=== PATIENT | male | born 1995 ===

== ENCOUNTER 2019-01-25 13:18 | Emergency (ER) | payer OTHER ==
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
[2019-01-25 13:28] VITALS: BP 137/91
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
[2019-01-25] MEDS ORDERED: IBUPROFEN 800 MG TAB PO ONE (15:16)
== END 2019-01-25 16:00 | disposition home or self-care (01) ==
LOC: ED 13:18
DX: M54.2 Cervicalgia (principal); M54.9 Dorsalgia, unspecified; M79.661 Pain in right lower leg; V49.59XA Passenger injured in collision with other motor vehicles in traffic accident, initial encounter; Y93.89 Activity, other specified; Y92.410 Unspecified street and highway as the place of occurrence of the external cause; Y99.8 Other external cause status
CPT/HCPCS: 72040; 72070

== ENCOUNTER 2020-08-11 13:16 | Emergency (ER) | payer SELFPAY ==
[2020-08-11 13:36] VITALS: BP 129/89
--- NOTE | 2020-08-11 13:43 | Emergency Department Report ---
ED General Adult HPI - General Chief complaint: Upper Respiratory Infection Stated complaint: ALLERGIES/SINUS/HEADACHE Time Seen by Provider: 08/11/20 13:35 Source: patient Mode of arrival: Ambulatory Limitations: Language Barrier - History of Present Illness Initial comments: 24-year-old immunocompetent male patient presents to the emergency department with complaints of subjective fever, sinus pressure, sneezing, nonproductive cough, nasal congestion, and sore throat starting 3 days ago. He has been taking Benadryl and ibuprofen with limited relief. No known sick contacts. No current steroid or antibiotic use. No recent travel. Denies neck pain, abdominal pain, shortness of breath, palpitations, vomiting, diarrhea, syncope, rash, urinary symptoms. Denies all other complaints at this time. - Related Data Previous Rx's Medication Instructions Recorded Last Taken Type Cyclobenzaprine [Flexeril] 10 mg PO TID PRN #10 tablet 01/25/19 Unknown Rx Ibuprofen [Motrin] 800 mg PO Q8HR PRN #30 tablet 01/25/19 Unknown Rx predniSONE [Deltasone] 20 mg PO DAILY #5 tablet 01/25/19 Unknown Rx Brompheniramine/Pseudoephed/Dm 118 ml PO Q4H PRN #1 bottle 08/11/20 Unknown Rx [Bromfed Dm Cough Syrup] Allergies Allergy/AdvReac Type Severity Reaction Status Date / Time No Known Allergies Allergy Verified 08/11/20 13:31 ED Review of Systems ROS: Stated complaint: ALLERGIES/SINUS/HEADACHE Other details as noted in HPI Other: GENERAL: Positive for subjective fever. ENT: Positive for sinus pressure, sneezing, nasal congestion, sore throat. CARDIOVASCULAR: Negative for chest pain, palpitations, lower extremity swelling. PULMONARY: Positive for nonproductive cough. GASTROINTESTINAL: Negative for abdominal pain, nausea, vomiting, diarrhea, constipation. MUSCULOSKELETAL: Negative for joint pain, joint swelling, myalgias, back pain, neck pain. NEUROLOGICAL: Negative for headache, seizure, syncope, paresthesias, weakness. INTEGUMENTARY: Negative for erythema, rash, diaphoresis, laceration, ecchymosis. HEMATOLOGICAL: Negative for hemoptysis, hematemesis, hematochezia, hematuria. PSYCHIATRIC: Negative for hallucinations, suicidal ideation, homicidal ideation, anxiety, depression. ED Past Medical Hx - Past Medical History Previous Medical History?: No - Surgical History Past Surgical History?: No - Social History Smoking Status: Current Every Day Smoker Substance Use Type: Alcohol - Medications Home Medications: Home Medications Medication Instructions Recorded Confirmed Last Taken Type Cyclobenzaprine [Flexeril] 10 mg PO TID PRN #10 tablet 01/25/19 Unknown Rx Ibuprofen [Motrin] 800 mg PO Q8HR PRN #30 tablet 01/25/19 Unknown Rx predniSONE [Deltasone] 20 mg PO DAILY #5 tablet 01/25/19 Unknown Rx Brompheniramine/Pseudoephed/Dm 118 ml PO Q4H PRN #1 bottle 08/11/20 Unknown Rx [Bromfed Dm Cough Syrup] ED Physical Exam - General Limitations: Language Barrier - Other Other exam information: General: Awake and alert. No acute distress. Head: Atraumatic, normocephalic. Bilateral frontal and maxillary sinus tenderness. Eyes: EOMI. Pupils are equal and round. Normal sclera and conjunctiva. ENT: Nasal congestion noted. Oral mucosa is moist. Normal pharyngeal exam. Neck: Supple. No lymphadenopathy. Pulmonary: No respiratory distress. Clear to auscultation bilaterally. Cardiac: Regular rate and rhythm. Pulses are palpable and equal bilaterally. No lower extremity cyanosis or edema. Skin: Warm and dry. No rashes. Abdomen: Soft, non-tender, non-protuberant. No guarding, rigidity, or rebound. Bowel sounds are normal. No organomegaly or masses noted. Back: Normal alignment. No CVA tenderness. Extremities: Symmetrical. Full range of motion intact. Neurological: Alert and oriented, appropriately interactive, no focal deficits. Psych: Cooperative. Appropriate mood and affect. Speech is evenly metered. Thoughts are logically construed. ED Course Vital Signs 08/11/20 08/11/20 13:34 13:36 Temperature 99.6 F Pulse Rate 85 Respiratory 20 Rate Blood Pressure 129/89 O2 Sat by Pulse 98 Oximetry ED Medical Decision Making - Medical Decision Making Differential diagnosis including but not limited to: pneumonia, sinusitis, viral upper respiratory infection, allergic rhinitis History and exam findings are most suggestive of common cold. No clinical indication for antibiotics at this time. He is afebrile, vital signs are stable, no respiratory distress. Lungs are clear to auscultation. Patient will be discharged home with appropriate symptomatic treatment and referred to local primary care provider for close outpatient follow-up. Patient expressed understanding is agreeable to plan of care. Disease transmission precautions discussed. Strict return precautions were added. Repeat exam is unremarkable and benign. History, exam, diagnostic testing, and current condition do not suggest worrisome pathology to warrant further testing, continued ED treatment, admission, or surgical evaluation at this point. Given the low probability of a significant medical illness, it would be more likely to result in harm than benefit to perform further testing at this stage. Discussed findings, presumptive diagnosis, need for follow-up and specific signs/symptoms that should prompt immediate return to the emergency department. Instructions were explained in detail to the patient in addition to giving written discharge information. Patient expressed understanding and was given the opportunity to ask questions, all of which were satisfactorily answered prior to discharge home. Critical care attestation.: If time is entered above; I have spent that time in minutes in the direct care of this critically ill patient, excluding procedure time. ED Disposition Clinical Impression: Acute nasopharyngitis Disposition: DC- TO HOME OR SELFCARE Is pt being admited?: No Does the pt Need Aspirin: No Condition: Stable Instructions: Viral Respiratory Infection, [id number] Additional Instructions: Take Tylenol or 4 hours Motrin every 8 hours as needed for pain. Take Bromfed as directed. Honey is an excellent natural cough suppressant. Rest. Drink plenty fluids. Wash hands frequently to prevent disease transmission. Do not share food or drinks with others. Follow-up with primary care provider this week. Call tomorrow to schedule an appointment. Return to the emergency department immediately for new or worsening symptoms. Prescriptions: Brompheniramine/Pseudoephed/Dm [Bromfed Dm Cough Syrup] 118 ml PO Q4H PRN #1 bottle PRN Reason: Cough Referrals: DAGO ERICKSON MD [Staff Physician] - 3-5 Days Time of Disposition: 13:43
== END 2020-08-11 14:02 | disposition home or self-care (01) ==
LOC: ED 13:16
DX: J00 Acute nasopharyngitis [common cold] (principal); F17.200 Nicotine dependence, unspecified, uncomplicated; Z79.899 Other long term (current) drug therapy
CPT/HCPCS: 99282

== ENCOUNTER 2020-08-12 09:01 | Emergency (ER) | payer SELFPAY ==
[2020-08-12 09:07] VITALS: BP 131/85
--- NOTE | 2020-08-12 10:21 | XRay Report ---
CHEST 2 VIEWS INDICATION / CLINICAL INFORMATION: cough/fever. COMPARISON: None available. FINDINGS: SUPPORT DEVICES: None. HEART / MEDIASTINUM: No significant abnormality. LUNGS / PLEURA: No significant pulmonary or pleural abnormality. No pneumothorax. ADDITIONAL FINDINGS: No significant additional findings. IMPRESSION: 1. No acute findings. Signer Name: Stevan Arellano MD Signed: 08/12/2020 10:16 AM Workstation Name: [id number]
--- NOTE | 2020-08-12 11:00 | Emergency Department Report ---
ED General Adult HPI - General Chief complaint: Upper Respiratory Infection Stated complaint: COUGHING BLOOD/FEVER/CHEST PAIN Time Seen by Provider: 08/12/20 10:06 Source: patient Mode of arrival: Ambulatory Limitations: No Limitations - History of Present Illness Initial comments: 24-year-old male presenting with chief complaint of cough. According to the patient he was seen here yesterday and diagnosed with viral sinusitis and given prescription for cough medication. He states that last evening he developed a fever and had worsening cough. He states that this morning he had one episode of hemoptysis and briefly had chest pain which is since resolved. He denies any shortness of breath. He denies any recent travel, known ill contacts, recent surgery, history of DVT or PE, leg pain or swelling or any other complaints. Symptoms are moderate, now improved, no alleviating or exacerbating factors. Severity scale (0 -10): 0 - Related Data Previous Rx's Medication Instructions Recorded Last Taken Type Cyclobenzaprine [Flexeril] 10 mg PO TID PRN #10 tablet 01/25/19 Unknown Rx Ibuprofen [Motrin] 800 mg PO Q8HR PRN #30 tablet 01/25/19 Unknown Rx predniSONE [Deltasone] 20 mg PO DAILY #5 tablet 01/25/19 Unknown Rx Brompheniramine/Pseudoephed/Dm 118 ml PO Q4H PRN #1 bottle 08/11/20 Unknown Rx [Bromfed Dm Cough Syrup] Fluticasone [Flonase] 2 spray NS QDAY #1 bottle 08/12/20 Unknown Rx Allergies Allergy/AdvReac Type Severity Reaction Status Date / Time No Known Allergies Allergy Verified 08/12/20 09:04 ED Review of Systems ROS: Stated complaint: COUGHING BLOOD/FEVER/CHEST PAIN Other details as noted in HPI Comment: All other systems reviewed and negative ED Past Medical Hx - Past Medical History Previous Medical History?: No - Surgical History Past Surgical History?: No - Social History Smoking Status: Never Smoker Substance Use Type: None - Medications Home Medications: Home Medications Medication Instructions Recorded Confirmed Last Taken Type Cyclobenzaprine [Flexeril] 10 mg PO TID PRN #10 tablet 01/25/19 Unknown Rx Ibuprofen [Motrin] 800 mg PO Q8HR PRN #30 tablet 01/25/19 Unknown Rx predniSONE [Deltasone] 20 mg PO DAILY #5 tablet 01/25/19 Unknown Rx Brompheniramine/Pseudoephed/Dm 118 ml PO Q4H PRN #1 bottle 08/11/20 Unknown Rx [Bromfed Dm Cough Syrup] Fluticasone [Flonase] 2 spray NS QDAY #1 bottle 08/12/20 Unknown Rx ED Physical Exam - General Limitations: No Limitations General appearance: alert, in no apparent distress - Head Head exam: Present: atraumatic, normocephalic - Eye Eye exam: Present: normal appearance - ENT ENT exam: Present: mucous membranes moist - Neck Neck exam: Present: normal inspection - Respiratory Respiratory exam: Present: normal lung sounds bilaterally. Absent: respiratory distress, wheezes, rales, rhonchi - Cardiovascular Cardiovascular Exam: Present: regular rate, normal rhythm. Absent: systolic murmur, diastolic murmur, rubs, gallop - GI/Abdominal GI/Abdominal exam: Present: soft, normal bowel sounds - Rectal Rectal exam: Present: deferred - Extremities Exam Extremities exam: Present: normal inspection - Back Exam Back exam: Present: normal inspection - Neurological Exam Neurological exam: Present: alert, oriented X3 - Psychiatric Psychiatric exam: Present: normal affect, normal mood - Skin Skin exam: Present: warm, dry, intact, normal color. Absent: rash ED Course Vital Signs 08/12/20 09:05 Temperature 99.2 F Pulse Rate 69 Respiratory 20 Rate Blood Pressure 131/85 [Right] O2 Sat by Pulse 100 Oximetry ED Medical Decision Making - Radiology Data Radiology results: report reviewed Negative chest x-ray - Medical Decision Making Patient presenting with complaints of cough and one episode of hemoptysis along with some chest discomfort that is since resolved. He also has sinus pressure and drainage. States he had a fever last night that has since improved. On my exam nontoxic, no distress, normal heart and lungs, benign abdomen, no lower extremity edema is noted. This is consistent with bronchitis/viral syndrome. Chest x-ray shows no evidence of pneumonia. I do not suspect PE, patient has normal vital signs and has a low risk Wells PE score and is PERC negative. Recommend continue supportive care at home and outpatient follow-up with PCP. I did encourage him to get tested for coronavirus at an outpatient testing facility. - Differential Diagnosis Viral syndrome, bronchitis, pneumonia Critical care attestation.: If time is entered above; I have spent that time in minutes in the direct care of this critically ill patient, excluding procedure time. ED Disposition Clinical Impression: Viral URI with cough Disposition: DC-01 TO HOME OR SELFCARE Is pt being admited?: No Condition: Good Instructions: Viral Respiratory Infection Prescriptions: Fluticasone [Flonase] 2 spray NS QDAY #1 bottle Time of Disposition: 10:58
== END 2020-08-12 11:14 | disposition home or self-care (01) ==
LOC: ED 09:01
DX: J06.9 Acute upper respiratory infection, unspecified (principal); R05 Cough; Z79.899 Other long term (current) drug therapy
CPT/HCPCS: 71046